=== PATIENT | female | born 1995 | race Caucasian/White ===

== ENCOUNTER 2025-01-18 06:07 | Day surgery (SDC) | payer OTHER ==
[2025-01-17 11:33] VITALS: BMI 24.3
[2025-01-18] MEDS ORDERED: MIDAZOLAM HCL 2 MG/2 ML SINGLE DOSE VIAL ONE (09:23)
[2025-01-18] MEDS ORDERED: SUCCINYLCHOLINE CHLORIDE 200 MG/10 ML SYRINGE ONE (09:23)
[2025-01-18] MEDS ORDERED: PROPOFOL 20 ML ONE (09:23)
[2025-01-18 14:40] VITALS: RESP 18
[2025-01-18 14:48] VITALS: BP 128/77; PULSE 70; TEMP 98
== END 2025-01-18 13:00 | disposition home or self-care (01) ==
LOC: JASU-SURG 06:07
PROVIDERS: ATTEND Obstetrics & Gynecology
PROC: 0UBC7ZX Excision of Cervix, Via Natural or Artificial Opening, Diagnostic (ICD-10-PCS; principal; 2025-01-18 09:30)
DX: Z87.410 Personal history of cervical dysplasia (principal); N87.1 Moderate cervical dysplasia; N72 Inflammatory disease of cervix uteri
CPT/HCPCS: 88305-TC; 88307-TC; 88341-TC; 88342-TC; 94760